=== PATIENT | female | born 1965 | race Caucasian/White ===

== ENCOUNTER 2021-11-29 10:00 | Outpatient (CLI) | payer MEDICAID ==
[~2021-11-29] VITALS: Ht 157.5 cm; Wt 88.5 kg
== END 2021-11-29 11:00 | disposition home or self-care (01) ==
LOC: SLB 10:00 → EDSTATUS 12-04 11:30
PROVIDERS: ATTEND Obstetrics & Gynecology
DX: Z01.812 Encounter for preprocedural laboratory examination (principal); Z20.822 Contact with and (suspected) exposure to COVID-19
CPT/HCPCS: 36415; U0003

== ENCOUNTER 2022-08-15 10:41 | Day surgery (SDC) | payer MEDICAID ==
[2022-08-13 11:02] LABS: BASOPHILS % (AUTO) 0.8 % (0.0-2.0); EOSINOPHILS # (AUTO) 0.2 K/uL (0.0-0.4); EOSINOPHILS % (AUTO) 3.1 % (0.0-4.0); HEMATOCRIT 38.5 % (36-48); HEMOGLOBIN 13.3 g/dL (12.0-16.0); LYMPHOCYTES # (AUTO) 2.1 K/uL (1.0-5.5); LYMPHOCYTES % (AUTO) 39.6 % (20.5-51.5); MEAN CORPUSCULAR HEMOGLOBIN 33 pg (27-31); MEAN CORPUSCULAR HGB CONC 35 % (32-36); MEAN CORPUSCULAR VOLUME 95 fL (79.0-98.0); MONOCYTES # (AUTO) 0.4 K/uL (0.0-1.0); MONOCYTES % (AUTO) 8.1 % (1.7-9.3); NEUTROPHILS # (AUTO) 2.6 K/uL (1.8-7.7); NEUTROPHILS % (AUTO) 48.4 % (40.0-70.0); PLATELET COUNT (AUTO) 326 K/uL (130-430); RED BLOOD CELL COUNT(AUTO) 4.06 MIL/uL (4.2-6.2); RED CELL DISTRIBUTION WIDTH 13.2 % (9.0-15.0); WHITE BLOOD COUNT (AUTO) 5.3 K/uL (4.8-10.8)
[2022-08-13 11:26] LABS: ALBUMIN 3.8 g/dL (3.4-4.8); CALCIUM 9.2 mg/dL (8.4-11.0); CREATININE 0.73 mg/dL (0.55-1.30); TOTAL BILIRUBIN 0.3 mg/dL (0.0-1.0)
[~2022-08-15] VITALS: Ht 157.5 cm; Wt 86.6 kg
[~2022-08-15 10:41] MED LIST: CEFAZOLIN SOD 1 GM/ ISO 50 ML PREMIX IV ONE
[2022-08-15] MEDS ORDERED: fentaNYL CITRATE/PF 100 MCG/2 ML AMP ONE (13:45)
[2022-08-15] MEDS ORDERED: PROPOFOL 200MG/ 20ML VIAL (DIPRIVAN) IV ONE (13:45)
[2022-08-15] MEDS ORDERED: ONDANSETRON HCL 4 MG/2 ML VIAL ONE (13:45)
[2022-08-15] MEDS ORDERED: MIDAZOLAM HCL 2 MG/2 ML VIAL (VERSED) ONE (13:45)
[2022-08-15] MEDS ORDERED: NEOSTIGMINE METHYLSULFATE 1 MG/ML, 10 ML VIAL ONE (13:45)
[2022-08-15] MEDS ORDERED: KETOROLAC TROMETHAMINE 30 MG VIAL ONE (13:45)
[2022-08-15] MEDS ORDERED: ROCURONIUM BROMIDE 10 MG/ML (ZEMURON) ONE (13:45)
[2022-08-15] MEDS ORDERED: GLYCOPYRROLATE 0.2 MG/ML VIAL ONE (13:45)
[2022-08-15] MEDS ORDERED: SEVOFLURANE 15 MIN GAS INH ONE (13:45)
[2022-08-15] MEDS ORDERED: BUPIVACAINE /EPINEPHRINE/PF 0.5% 30 ML VIAL INJ ONE (13:45)
[2022-08-15] MEDS ORDERED: LR 1,000 ML IV.SOLN IV ONE (13:45)
[2022-08-15] MEDS ORDERED: NS IRRIG SOLN 1000 ML IR ONE (13:45)
[2022-08-15] MEDS ORDERED: SUCCINYLCHOLINE CHLORIDE 20 MG/ML(QUELICIN) ONE (13:45)
[2022-08-15] MEDS ORDERED: KETOROLAC TROMETHAMINE 30 MG VIAL IVP PRN (16:15)
[2022-08-15] MEDS ORDERED: ONDANSETRON HCL 4 MG/2 ML VIAL IVP PRN ×2 (16:15→18:15)
[2022-08-15] MEDS ORDERED: METOCLOPRAMIDE HCL 10 MG/2 ML VIAL IVP PRN (16:15)
[2022-08-15] MEDS ORDERED: HYDROmorphone 1 MG/ML INJ. CARTRIDGE IVP PRN (16:15)
[2022-08-15] MEDS ORDERED: OXYCODONE/ACETAMINOPHEN 5-325 TABLET PO PRN (18:15)
[2022-08-15] MEDS ORDERED: DIPHENHYDRAMINE HCL 12.5 MG/5 ML UDC PO PRN (18:15)
[2022-08-15 20:00] VITALS: BP_SYST 120
[2022-08-15] MEDS: IBUPROFEN 800 MG TABLET PO SCH ×2 (20:10→21:00)
[2022-08-16] VITALS: BP_SYST 116
[2022-08-16] MEDS: OXYCODONE/ACETAMINOPHEN 5-325 TABLET PO PRN ×2 (03:42→13:15)
[2022-08-16 04:00] VITALS: BP_SYST 118
[2022-08-16 04:58] VITALS: BP_SYST 108
[2022-08-16 08:00] VITALS: BP_SYST 141
[2022-08-16] MEDS: IBUPROFEN 800 MG TABLET PO SCH (09:51)
[2022-08-16 12:00] VITALS: BP_SYST 132
[2022-08-16 14:42] VITALS: BP_SYST 132
[2022-08-21 13:17] VITALS: BP_SYST 130
== END 2022-08-16 16:00 | disposition home or self-care (01) ==
LOC: SDS 10:41 → SMU 10:42 → SDS 18:26 → UNDOADMIN 18:30 → SMU 18:30 → UNDODISIN 08-16 16:00
PROVIDERS: ATTEND Obstetrics & Gynecology
DX: N95.0 Postmenopausal bleeding (principal); N82.2 Fistula of vagina to small intestine; E06.3 Autoimmune thyroiditis; E78.5 Hyperlipidemia, unspecified; E03.9 Hypothyroidism, unspecified; Z20.822 Contact with and (suspected) exposure to COVID-19; E66.01 Morbid (severe) obesity due to excess calories; Z68.33 Body mass index [BMI] 33.0-33.9, adult; Z79.899 Other long term (current) drug therapy
CPT/HCPCS: 80053; 85025; 86886; 86900; 86901; 87081; 36415 ×2; 93005; 58571; 71045; 88307; 87426; U0003; J3490 ×2; J0690; J1885; J3465; J2405; J2704; J0330; J3010; J7120; C1727; J2710; S2900; E0190

== ENCOUNTER 2022-11-06 13:58 | Emergency (ER) | payer MEDICAID ==
[~2022-11-06] VITALS: Ht 157.5 cm; Wt 83.9 kg
[2022-11-06 14:11] VITALS: BP_SYST 146
[2022-11-06 15:13] LABS: BASOPHILS % (AUTO) 0.5 % (0.0-2.0); EOSINOPHILS % (AUTO) 32.7 % (0.0-4.0); HEMATOCRIT 38.8 % (36-48); HEMOGLOBIN 12.9 g/dL (12.0-16.0); LYMPHOCYTES # (AUTO) 2.5 K/uL (1.0-5.5); LYMPHOCYTES % (AUTO) 27.2 % (20.5-51.5); MEAN CORPUSCULAR HEMOGLOBIN 31 pg (27-31); MEAN CORPUSCULAR HGB CONC 33 % (32-36); MEAN CORPUSCULAR VOLUME 95 fL (79.0-98.0); MONOCYTES # (AUTO) 0.4 K/uL (0.0-1.0); MONOCYTES % (AUTO) 4.5 % (1.7-9.3); NEUTROPHILS # (AUTO) 3.2 K/uL (1.8-7.7); NEUTROPHILS % (AUTO) 35.1 % (40.0-70.0); PLATELET COUNT (AUTO) 393 K/uL (130-430); RED BLOOD CELL COUNT(AUTO) 4.11 MIL/uL (4.2-6.2); RED CELL DISTRIBUTION WIDTH 13.5 % (9.0-15.0); WHITE BLOOD COUNT (AUTO) 9.1 K/uL (4.8-10.8)
[2022-11-06 15:22] LABS: CALCIUM 8.4 mg/dL (8.4-11.0); CREATININE 0.63 mg/dL (0.55-1.30)
[2022-11-06 15:27] LABS: ALBUMIN 3.5 g/dL (3.4-4.8); TOTAL BILIRUBIN 0.3 mg/dL (0.0-1.0)
[2022-11-06 15:33] LABS: C-REACTIVE PROTEIN QUANT 0.3 mg/dL (0-0.5)
[2022-11-06 16:29] LABS: BILIRUBIN,URINE NEGATIVE (NEGATIVE); BLOOD, URINE NEGATIVE (NEGATIVE); CLARITY/URINE CLEAR (CLEAR); COLOR,URINE YELLOW (YELLOW); GLUCOSE,URINE NEGATIVE (NEGATIVE); KETONES,URINE NEGATIVE (NEGATIVE); LEUKOCYTE ESTERASE ,URINE NEGATIVE (NEGATIVE); NITRITE, URINE NEGATIVE (NEGATIVE); PH,URINE 5.5 (5.0-8.0); PROTEIN URINE NEGATIVE (NEGATIVE); UROBILINOGEN,URINE 0.2 (0.2-1.0)
[2022-11-06] MEDS ORDERED: LOM2.5 PO (16:48)
[2022-11-06 16:57] VITALS: BP_SYST 132
== END 2022-11-06 16:57 | disposition home or self-care (01) ==
LOC: SED 13:58
DX: R19.7 Diarrhea, unspecified (principal); Z79.899 Other long term (current) drug therapy
CPT/HCPCS: 36415; 76376; 80053; 81003; 82150; 83605; 83690; 85025; 86140; 99284

== ENCOUNTER 2023-06-18 12:23 | Emergency (ER) | payer MEDICAID ==
[~2023-06-18] VITALS: Ht 157.5 cm; Wt 83.9 kg
[~2023-06-18 12:23] MED LIST changes: -CEFAZOLIN SOD 1 GM/ ISO 50 ML PREMIX IV ONE; +LOM2.5 PO
[2023-06-18 12:52] LABS: BASOPHILS % (AUTO) 0.7 % (0.0-2.0); EOSINOPHILS # (AUTO) 0.2 K/uL (0.0-0.4); EOSINOPHILS % (AUTO) 2.6 % (0.0-4.0); HEMATOCRIT 37.2 % (36-48); HEMOGLOBIN 12.5 g/dL (12.0-16.0); LYMPHOCYTES # (AUTO) 2.6 K/uL (1.0-5.5); LYMPHOCYTES % (AUTO) 41.3 % (20.5-51.5); MEAN CORPUSCULAR HEMOGLOBIN 32 pg (27-31); MEAN CORPUSCULAR HGB CONC 34 % (32-36); MEAN CORPUSCULAR VOLUME 95 fL (79.0-98.0); MONOCYTES # (AUTO) 0.5 K/uL (0.0-1.0); MONOCYTES % (AUTO) 7.3 % (1.7-9.3); NEUTROPHILS % (AUTO) 48.1 % (40.0-70.0); PLATELET COUNT (AUTO) 357 K/uL (130-430); RED BLOOD CELL COUNT(AUTO) 3.92 MIL/uL (4.2-6.2); RED CELL DISTRIBUTION WIDTH 13.2 % (9.0-15.0); WHITE BLOOD COUNT (AUTO) 6.2 K/uL (4.8-10.8)
[2023-06-18 12:55] VITALS: BP_SYST 146; PULSE 67; RESP 18; TEMP 98; O2SAT 100
[2023-06-18 13:03] LABS: CREATININE 0.71 mg/dL (0.55-1.30)
[2023-06-18 13:31] LABS: ALBUMIN 4.2 g/dL (3.4-4.8); BILIRUBIN,DIRECT 0.1 mg/dL (0.0-0.3); TOTAL BILIRUBIN 0.4 mg/dL (0.0-1.0); TOTAL PROTEIN, SERUM 8.1 g/dL (6.4-8.3)
[2023-06-18] MEDS ORDERED: NITR-85 PO (14:14)
[2023-06-18] MEDS ORDERED: PHEN-726 PO (14:14)
[2023-06-18 14:20] LABS: BILIRUBIN,URINE NEGATIVE (NEGATIVE); BLOOD, URINE NEGATIVE (NEGATIVE); CLARITY/URINE CLEAR (CLEAR); COLOR,URINE YELLOW (YELLOW); GLUCOSE,URINE NEGATIVE (NEGATIVE); KETONES,URINE NEGATIVE (NEGATIVE); LEUKOCYTE ESTERASE ,URINE NEGATIVE (NEGATIVE); NITRITE, URINE NEGATIVE (NEGATIVE); PROTEIN URINE NEGATIVE (NEGATIVE); UROBILINOGEN,URINE 0.2 (0.2-1.0)
== END 2023-06-18 14:23 | disposition home or self-care (01) ==
LOC: SED 12:23
DX: N39.0 Urinary tract infection, site not specified (principal); Z79.899 Other long term (current) drug therapy
CPT/HCPCS: 36415; 80048; 80076; 81001; 81003; 82150; 83605; 83690; 85025; 99283

== ENCOUNTER 2023-09-29 13:19 | Emergency (ER) | payer MEDICAID ==
[~2023-09-29] VITALS: Ht 160 cm; Wt 83.9 kg
[~2023-09-29 13:19] MED LIST changes: +NITR-85 PO; +PHEN-726 PO
[2023-09-29 13:32] VITALS: BP_SYST 143; PULSE 64; RESP 18; TEMP 97.9; O2SAT 98
[2023-09-29 13:55] LABS: BILIRUBIN,URINE NEGATIVE (NEGATIVE); BLOOD, URINE 3+ (NEGATIVE); CLARITY/URINE SL CLOUDY (CLEAR); COLOR,URINE YELLOW (YELLOW); GLUCOSE,URINE NEGATIVE (NEGATIVE); KETONES,URINE NEGATIVE (NEGATIVE); LEUKOCYTE ESTERASE ,URINE 2+ (NEGATIVE); NITRITE, URINE POSITIVE (NEGATIVE); PROTEIN URINE 2+ (NEGATIVE); UROBILINOGEN,URINE 0.2 (0.2-1.0)
[2023-09-29 14:06] LABS: BACTERIA,URINE MANY /HPF (None Seen); RBC,URINE 80-100 /HPF (0-3); WBC,URINE 0-3 /HPF (0-3)
[2023-09-29] MEDS ORDERED: CEPH250C PO (14:29)
[2023-09-29 14:36] VITALS: BP_SYST 143; PULSE 64; RESP 18; TEMP 97.9; O2SAT 98
== END 2023-09-29 14:39 | disposition home or self-care (01) ==
LOC: SED 13:19
DX: N39.0 Urinary tract infection, site not specified (principal); R30.0 Dysuria; R35.0 Frequency of micturition; Z88.1 Allergy status to other antibiotic agents; Z79.899 Other long term (current) drug therapy
CPT/HCPCS: 81000; 81001; 81015; 87086; 87186; 99283

== ENCOUNTER 2024-04-19 10:07 | Emergency (ER) | payer MEDICAID ==
[~2024-04-19] VITALS: Ht 157.5 cm; Wt 87.1 kg
[~2024-04-19 10:07] MED LIST changes: +CEPH250C PO
[2024-04-19 10:14] VITALS: BP_SYST 141; PULSE 65; RESP 16; TEMP 96.5; O2SAT 98
[2024-04-19] MEDS ORDERED: CLON1TAB12 PO (11:40)
[2024-04-19] MEDS ORDERED: NAPR-688 PO (11:40)
[2024-04-19 11:57] VITALS: BP_SYST 141; PULSE 65; RESP 16; TEMP 96.5; O2SAT 98
== END 2024-04-19 11:49 | disposition home or self-care (01) ==
LOC: SED 10:07
DX: M54.12 Radiculopathy, cervical region (principal); M25.512 Pain in left shoulder; Z88.1 Allergy status to other antibiotic agents; Z79.899 Other long term (current) drug therapy; Z79.2 Long term (current) use of antibiotics
CPT/HCPCS: 72040; 73030; 99284